=== PATIENT | male | born 1955 | race Caucasian/White ===

== ENCOUNTER 2024-01-07 07:02 | Emergency (ER) | payer MEDICARE, SELFPAY ==
--- NOTE | ~2024-01-07 | CT_ITS ---
EXAMINATION: CT cervical spine wo con DATE: 01/07/2024 08:01 INDICATION: Fall. Unresponsive episode. TECHNIQUE: Computed tomography (CT) of the cervical spine was performed without intravenous contrast. Automated exposure control and iterative reconstruction technique were employed. Exam dose: 579.75 mGy-cm total exam DLP. COMPARISON: None FINDINGS: The prior to 1.8 cm posterior left apical irregular lung mass, highly suggestive of lung ca ncer. There is moderate degenerative disc disease at C2-3 and C3-4 and severe degenerative disc disease at C4-5, particularly severe degenerative disc disease at C5-6, C6-7, C7-T1. There is very prominent pos terior spurring in particular at C5-6. There is posterior spurring as well at C4-5 and C6-7. There is prominent uncovertebral joint spurring at C4-5, C5-6, C6-7 and C7-T1. No fracture or dislocation or locked facet or prevertebral soft tissue swelling is detected. IMPRESSION: Irregular 1.8 cm posterior left apical irregular lung mass, highly suggestive of lung ca ncer Severe cervical spondylosis; no fracture or dislocation or locked facet is detected. Dr. Sherman telephoned the report including the suspected 1.8 cm left apical lung cancer on 01/07/2024 at [address]857 hours to ER physician Dr. Wang. Reviewed, dictated and finalized at [facility]. Reviewed, dictated and finalized at [facility]. IMPRESSION: Irregular 1.8 cm posterior left apical irregular lung mass, highly suggestive of lung cancer Severe cervical spondylosis; no fracture or dislocation or locked facet is dete cted. Dr. Sherman telephoned the report including the suspected 1.8 cm left apical lung cancer on 01/07/2024 at [address] ER physician [address] Wang.
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
[2024-01-07 07:00] VITALS: BP 195/109; PULSE 78; RESP 17; TEMP 36.6; O2SAT 92
[2024-01-07 07:11] VITALS: PULSE 72
[2024-01-07] MEDS: HALOPERIDOL LACTATE 5 MG/ML VIAL IV PUSH (07:15)
--- NOTE | 2024-01-07 07:23 | PC.NURSE ---
when belongings gathered pt had omeprazole bottle in pocket and half filled with what looks like cloudy broken glass. Bottle removed from room placed in blue lab bag and given to charge nurse to secure
[2024-01-07 07:30] LABS: Basophils Absolute Auto 0.1 K/mm3 (0.0-0.1); Eosinophils Absolute Auto 0.2 K/mm3 (0-0.3); Eosinophils Percent Auto 2.5 % (0-4.4); Hematocrit 43.3 % (42.0-52.0); Hemoglobin 14.2 g/dL (14.0-18.0); Immature Granulocyte Absolute 0.04 K/mm3 (0.00-0.031); Immature Granulocyte Percent A 0.7 % (0-0.5); Lymphocytes Absolute Auto 1.97 K/mm3 (0.9-3.2); Lymphocytes Percent Auto 32.8 % (18.3-44.2); Mean Corpuscular HGB Conc 32.8 g/dl (32-36); Mean Corpuscular Hemoglobin 30.3 pg (26-34); Mean Corpuscular Volume 92.5 fl (80-100); Mean Platelet Volume 10.1 fl (7.4-10.4); Monocytes Absolute Auto 0.6 K/mm3 (0.1-0.6); Monocytes Percent Auto 10.1 % (2.6-8.5); Neutrophils Absolute Auto 3.2 K/mm3 (1.3-6.7); Neutrophils Percent Auto 52.9 % (45.5-73.1); Platelet Count Result 226 k/mm3 (150-375); Red Blood Count 4.68 M/mm3 (4.6-6.20); Red Cell Distribution Width 13.8 % (11.5-14.5)
--- NOTE | 2024-01-07 07:33 | PC.NURSE ---
confiscated items (2 blue biohazard bags - one with drug paraphernalia and one with omeprazole bottle with cloudy broken glass appearing substance) from patient taken by warehouse director, security clerk Shaggy to [facility]'s office to put items in safe.
[2024-01-07 07:39] LABS: Acetaminophen < 10 ug/mL (10-30); Alanine Aminotransferase 45 U/L (6-50); Albumin Level 3.8 g/dL (3.5-5.1); Alkaline Phosphatase 73 U/L (38-126); Anion Gap 5 mmol/L (4-12); Appearance Urine Clear (Clear); Aspartate Amino Transferase 43 U/L (17-59); Bacteria Urine None Seen /hpf; Bilirubin Urine Negative (Negative); Bilirubin,Total 0.4 mg/dL (0.2-1.3); Blood Urea Nitrogen 28 mg/dL (9-20); Blood Urine Negative (Negative); Calcium 8.2 mg/dL (8.4-10.2); Carbon Dioxide 27 mmol/L (22-30); Chloride 105 mmol/L (98-107); Color Urine Yellow (Yellow); Estimated CRCL calculation 74 ml/min; Estimated Glomerular Filt Rate > 60; Ethanol < 10 mg/dL (<10); Glucose 175 mg/dL (65-110); Glucose Urine UA Trace mg/dL (Negative); Ketones Urine Negative (Negative); Leukocyte Esterase Ur Negative LEU/UL (Negative); Nitrate Urine Negative (Negative); Protein Urine 1+ mg/dL (Negative); RBC Urine 0-2 /hpf (0-2); Salicylate < 1.0 mg/dL (2-20); Sodium 137 mmol/L (137-145); Squamous Epithelial Cell Urine None Seen /hpf (Few); WBC Urine 0-5 /hpf (0-3); pH Urine 5.5 (5.0-9.0)
[2024-01-07 07:45] LABS: Barbiturate Screen Urine Negative (Negative); Benzodiazepines Screen Urine Negative (Negative)
[2024-01-07 08:00] LABS: Cannabinoid Screen Urine Positive (Negative); Cocaine Screen Urine Negative (Negative); Methadone Screen Urine Negative (Negative); Opiate Screen Urine Negative (Negative); Phencyclidine Screen Urine Negative (Negative)
[2024-01-07 08:03] VITALS: BP 129/86; PULSE 60; RESP 16; O2SAT 95
[2024-01-07 08:20] LABS: Amphetamine Screen Urine Positive (Negative)
[2024-01-07 08:31] LABS: Glucose Point of Care 112 mg/dl (65-105)
[2024-01-07 08:58] VITALS: BP 139/85; PULSE 60; RESP 16; O2SAT 93
[2024-01-07 09:30] LABS: Add Urine Microscopic? YES
[2024-01-07 09:56] VITALS: BP 163/90; PULSE 65; RESP 20; O2SAT 97
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
== END 2024-01-07 10:25 | disposition home or self-care (01) ==
PROVIDERS: Emergency Provider Emergency Medicine
DX: R91.8 Other nonspecific abnormal finding of lung field (principal); F15.90 Other stimulant use, unspecified, uncomplicated; F12.90 Cannabis use, unspecified, uncomplicated; T65.91XA Toxic effect of unspecified substance, accidental (unintentional), initial encounter; F17.290 Nicotine dependence, other tobacco product, uncomplicated
CPT/HCPCS: 36415; 70450; 72125; 80053; 80307; 81001; 82948; 84443; 85025; 96374; 99284; J1630; L0140